=== PATIENT | female | born 1990 | race Caucasian/White ===

== ENCOUNTER → 2020-07-27 08:04 | Outpatient (CLI) | payer OTHER, SELFPAY ==
[2020-07-27 08:52] LABS: Hematocrit 39.3 % (37-47); Hemoglobin 13.3 g/dL (12.0-15.0); Mean Corp Hgb Conc 33.8 g/dL (32-36); Mean Corpuscular Volume 88.5 fL (81-99); Mean Platelet Vol. 10.3 fl (6.2-12.0); Platelet Count 259 K/mm3 (150-450); RBC Distribution Width CV 11.9 % (11.6-14.6); RBC Distribution Width SD 38.3 fl (35.1-43.9); Red Blood Count 4.44 M/mm3 (4.2-5.4); White Blood Count 6.2 K/mm3 (4.4-11.0)
[2020-07-27 09:23] LABS: AST(SGOT) 10 U/L (15-37); Alanine Aminotransfer ALT/SGPT 21 U/L (13-56); Albumin, Serum 3.6 g/dL (3.2-5.0); Alkaline Phosphatase 30 U/L (45-117); Anion Gap 9 (5-15); BUN 15 mg/dL (7-18); Calcium,Total 8.2 mg/dL (8.5-10.1); Chloride 105 mmol/L (98-107); Creatinine, Serum 0.79 mg/dL (0.55-1.02); EST Glomerular Filtration Rate 91 mL/min (>60); Est Glom Filt Rate - Afr Amer 110 mL/min (>60); Free T3 2.2 pg/mL (2.18-3.98); Globulin 3.5 g/dL (2.2-4.2); Glucose 87 mg/dL (74-106); Potassium 3.5 mmol/L (3.5-5.1); Protein, Total 7.1 g/dL (6.4-8.2); Sodium Level 138 mmol/L (136-145); T4 Free Direct 1.07 ng/dL (0.76-1.46); Thyroid Stim Hormone (TSH) 1.44 uIU/mL (0.358-3.74)
[2020-07-28 09:53] LABS: Thyroid Peroxidase AB < 9 IU/mL (0-34)
== END ==
PROVIDERS: PCP Nurse Practitioner Family; Referring Provider Nurse Practitioner Family; Visit Provider Nurse Practitioner Family
DX: I49.8 Other specified cardiac arrhythmias (principal); Z82.49 Family history of ischemic heart disease and other diseases of the circulatory system
CPT/HCPCS: 36415; 80053; 84439; 84443; 84481; 84484; 85027; 86376; 93225; 93226

== ENCOUNTER → 2020-08-08 08:01 | Outpatient (CLI) | payer OTHER, SELFPAY ==
[2020-08-08 09:25] LABS: PTHIN 46.2 pg/mL (18.4-80.1); Vitamin D,25 Hydroxy 43.8 ng/mL
== END ==
PROVIDERS: Visit Provider Nurse Practitioner Family
DX: E83.51 Hypocalcemia (principal); I49.8 Other specified cardiac arrhythmias; R00.2 Palpitations
CPT/HCPCS: 36415; 82306; 83970

== ENCOUNTER → 2020-08-16 10:27 | Outpatient (CLI) | payer OTHER, SELFPAY ==
[2020-08-16 07:18] VITALS: BMI 21.8
[2020-08-16 11:29] LABS: Cholesterol 156 mg/dL (200); High Density Lipoprotein 72 mg/dL; Triglycerides 107 mg/dL; Very Low Density Lipoprotein 21 mg/dL (5-40)
== END ==
PROVIDERS: PCP Nurse Practitioner Family; Referring Provider Internal Medicine Cardiovascular Disease; Visit Provider Internal Medicine Cardiovascular Disease
DX: R07.9 Chest pain, unspecified (principal)
CPT/HCPCS: 36415; 80061

== ENCOUNTER → 2020-09-19 09:01 | Outpatient (CLI) | payer OTHER, SELFPAY ==
[2020-08-16 07:18] VITALS: BMI 21.8
--- NOTE | 2020-09-19 09:03 | ECHOCS_ITS ---
Reason For Study: CHEST PAIN Procedure This was a 2D Doppler, Color Flow transthoracic echocardiogram. The study was technically difficult. Contrast injection was performed. Exam performed in department. Left Ventricle Normal LV size. Left ventricular systolic function is normal. The estimated ejection fraction is 55 %. Normal diastology for age. No regional wall motion abnormalities noted. Right Ventricle Normal RV size. Normal systolic function. Atria Normal left atrium. Normal right atrium. Mitral Valve Normal mitral valve. Tricuspid Valve Normal tricuspid valve. Aortic Valve Trisinus/trileaflet aortic valve. Pulmonic Valve Normal pulmonic valve. Great Vessels Normal aortic root. The pulmonary artery is normal size. Normal inferior vena cava. Pericardium/Pleural No pericardial effusion. Medication 22 gauge I.V. with prn adaptor inserted into right arm. Diluted definity 4.0ml given slow IV push to enhance endocardial definition. MMode/2D Measurements & Calculations LVIDd: 3.3 cm IVSd: 0.68 cm Ao root diam: 2.4 cm LVIDs: 2.2 cm LVPWd: 0.78 cm RVDd: 2.7 cm FS: 34.6 % LAV(MOD-bp): 19.5 ml LVAd ap4: 25.4 cm2 SV(MOD-sp4): 39.3 ml LAV(MOD-bp) Indexed: 13.4 ml/m2 EDV(MOD-sp4): 70.1 ml LAV(MOD-sp2): 21.1 ml EDV(sp4-el): 72.3 ml LAV(MOD-sp4): 18.3 ml LVAs ap4: 15.5 cm2 ESV(MOD-sp4): 30.9 ml ESV(sp4-el): 32.3 ml EF(MOD-sp4): 56.0 % EF(sp4-el): 55.4 % SV(sp4-el): 40.1 ml LA A4 area: 9.1 cm2 LA dimension(2D): 2.0 cm RA A4 area: 8.1 cm2 Time Measurements MV dec time: 0.38 sec Doppler Measurements & Calculations MV E max zelalem: 59.4 cm/sec Lat Peak E' Zelalem: 15.1 cm/sec Med Peak E' Zelalem: 10.9 cm/sec MV A max zelalem: 39.7 cm/sec E/E' lat: 3.9 E/E' med: 5.4 MV E/A: 1.5 Ao V2 max: 100.3 cm/sec LV V1 max: 90.0 cm/sec PA V2 max: 76.9 cm/sec Ao max P.0 mmHg LV V1 max P.2 mmHg PI end-d zelalem: 87.8 cm/sec Interpretation Summary Normal LV size. Left ventricular systolic function is normal. The estimated ejection fraction is 55 %. Normal diastology for age. Contrast injection was performed. Structurally normal valves. Ordering Physician: Shankar Davis Referring Physician: SCOT HARTMAN Performed By: Felicity Campos, FRANCA, RVT
--- NOTE | 2020-09-19 17:06 | STRESSREP ---
Stress Test Report Exercise stress test. 30-year-old lady with a history of chest pain. Stress protocol: Resting EKG demonstrates normal sinus rhythm with a rate of 71 bpm normal intervals are noted resting blood pressure is 102/68 mmHg. Patient exercised according to regular Mauri protocol for a total duration of 10 minutes and 30 seconds patient completed 1 minute and 30 seconds into stage IV of the Mauri protocol. The maximum heart rate attained was 176 bpm which was 92% of maximum predicted heart rate the maximum workload was 12.5 metabolic equivalents. At rest there were no ST or T wave changes noted to suggest ischemia and at peak exercise upsloping ST changes only were noted which did not meet the criteria for ischemia.No clinical angina was noted the test was terminated due to leg fatigue. The peak blood pressure was 146/70 mmHg which is a normal blood pressure response to exercise. Conclusion: Exercise stress test with no EKG criteria for ischemia at a high workload. Good functional capacity.
== END ==
PROVIDERS: PCP Nurse Practitioner Family; Referring Provider Internal Medicine Cardiovascular Disease; Visit Provider Internal Medicine Cardiovascular Disease
DX: R07.9 Chest pain, unspecified (principal)
CPT/HCPCS: 93017; 93306; Q9957; A4216; C8929